=== PATIENT | female | born 1950 | race Caucasian/White ===

== ENCOUNTER → 2018-04-06 | Outpatient (CLI) | payer OTHER | LOC: M.RAD 10:49 | DX: Z12.31 Encounter for screening mammogram for malignant neoplasm of breast (principal) ==

== ENCOUNTER → 2018-05-04 | Outpatient (CLI) | payer OTHER | LOC: M.RAD 08:41 | DX: M85.89 Other specified disorders of bone density and structure, multiple sites (principal); R26.9 Unspecified abnormalities of gait and mobility; Z78.0 Asymptomatic menopausal state ==